=== PATIENT | female | born 1995 | race Caucasian/White ===

== ENCOUNTER 2017-07-19 05:34 | Emergency (ER) | payer SELFPAY ==
[~2017-07-19] VITALS: Ht 157.5 cm; Wt 93.2 kg
[2017-07-19 05:45] VITALS: BP 118/66; PULSE 117; RESP 18; TEMP 100.8; O2SAT 94
[2017-07-19] MEDS ORDERED: ACETAMINOPHEN 325 MG TAB PO ONE (06:30)
[2017-07-19] MEDS ORDERED: SODIUM CHLOR 0.9% 1000 ML INJ 1,000 ML IV ONE (06:30)
--- NOTE | 2017-07-19 06:55 | PD ---
HPI . Palpitations Chief Complaint: Cardiac Complaint Time Seen by Provider: 06:10 Travel History International Travel<30 days: No Contact w/Intl Traveler<30days: No Traveled to known affect area: No History of Present Illness HPI Patient presents with a chief complaint of rapid heart rate. Onset was at 5 AM. It lasted maybe 10 minutes. She states that she called the rescue squad and that the medics got there and was able to "talk her down." In addition, the patient is complaining with a sore throat and fever. She has had the symptoms for the last couple of days. She states that she got up to go the bathroom tonight and felt her heart beating fast. Symptoms were moderate but short-lived. She states that the symptoms were exacerbated by a "panic attack" and that her symptoms improved when the medic was able to "talk her down." PFSH Past Medical History Asthma: Yes Tetanus Vaccination: < 5 Years Influenza Vaccination: No ?: Not LMP: CURRENTLY : 2 Para: 2 Tubal Ligation: Yes Past Surgical History Section: Yes (X 2) Oral Surgery: Yes Social History Alcohol Use: Yes (RARELY ) Tobacco Use: Yes Substance Use: No Allergies-Medications (Allergen,Severity, Reaction): Coded Allergies: Penicillins (Verified Allergy, Severe, 07/19/17) HIVES levofloxacin (Verified Allergy, Severe, 07/19/17) HIVES Reported Meds & Prescriptions Reported Meds & Active Scripts Active No Active Prescriptions or Reported Medications Review of Systems Except as stated in HPI: all other systems reviewed are Neg General / Constitutional: Positive: Fever, Chills HENT: Positive: Sore Throat Cardiovascular: Positive: Palpitations Physical Exam Narrative GENERAL: Awake and alert and in no acute distress. SKIN: warm/dry. HEAD: Normocephalic. Atraumatic. EYES: Pupils equal and round. No scleral icterus. No injection or drainage. ENT: She does have erythema of her oropharynx with tonsillar enlargement and an exudate. NECK: Trachea midline. Full range of motion without pain.. No palpable cervical lymphadenopathy. CARDIOVASCULAR: Heart rate is about 110. It is sinus. RESPIRATORY: No accessory muscle use. Clear to auscultation. Breath sounds equal bilaterally. MUSCULOSKELETAL: No obvious deformities. NEUROLOGICAL: Awake and alert. No obvious cranial nerve deficits. Motor grossly within normal limits. Normal speech. PSYCHIATRIC: Appropriate mood and affect; insight and judgment normal. Data Data Last Documented VS Vital Signs Date Time Temp Pulse Resp B/P (MAP) Pulse Ox O2 Delivery O2 Flow Rate FiO2 07/19/17 05:45 100.8 117 18 118/66 (83) 94 Orders Orders Sodium Chlor 0.9% 1000 Ml Inj (Ns 1000 M (07/19/17 06:30) Acetaminophen (Tylenol) (07/19/17 06:30) Basic Metabolic Panel (Bmp) (07/19/17 06:18) Complete Blood Count With Diff (07/19/17 06:18) Group A Rapid Strep Screen (07/19/17 06:18) MDM Medical Decision Making Medical Screen Exam Complete: Yes Emergency Medical Condition: Yes Differential Diagnosis Differential diagnosis of tachycardia includes but is not limited to PSVT, atrial fibrillation with a rapid ventricular response, sinus tachycardia (due to hypovolemia, anemia, thyrotoxicosis, PE) Differential diagnosis of sore throat includes but is not limited to viral illness, strep throat, mononucleosis, retropharyngeal abscess, peritonsillar abscess Narrative Course This patient presents stating that she had a rapid heartbeat prior to arrival. She states that the medics were able to improve her heart rate by "talking her down." Her heart rate was reportedly 170. Unfortunately, we do not have a rhythm strip from [facility]. The patient does have a mild sinus tachycardia. She is also febrile. She has a sore throat. I am treating her with Tylenol and fluids. A CBC, BMP and rapid strep are pending. Her care will be turned over to the oncoming provider pending laboratory evaluation. Diagnosis Primary Impression: Tachycardia Additional Impression: Pharyngitis Qualified Codes: J02.9 - Acute pharyngitis, unspecified Scripts No Active Prescriptions or Reported Meds Condition: Marcella Villar MD Jul 19, 2017 06:55
[2017-07-19 07:17] LABS: AUTOMATED NEUTROPHIL # 10.9 TH/MM3 (1.8-7.7); BASOPHIL # 0.1 TH/MM3 (0-0.2); BASOPHIL % 0.6 % (0.0-2.0); EOSINOPHIL # 0.1 TH/MM3 (0-0.4); EOSINOPHIL % 0.7 % (0.0-4.0); HEMATOCRIT 35.9 % (35.0-46.0); HEMOGLOBIN 11.6 GM/DL (11.6-15.3); LYMPH % 7.8 % (9.0-44.0); MEAN CELL VOLUME 79.9 FL (80.0-100.0); MEAN CORPUSCULAR HEMOGLOBIN 25.9 PG (27.0-34.0); MEAN CORPUSCULAR HGB CONC 32.4 % (32.0-36.0); MEAN PLATELET VOLUME 9.1 FL (7.0-11.0); MONOCYTE # 0.8 TH/MM3 (0-0.9); NEUT % 84.9 % (16.0-70.0); PLATELET COUNT 161 TH/MM3 (150-450); RED BLOOD COUNT 4.49 MIL/MM3 (4.00-5.30); RED CELL DISTRIBUTION WIDTH 16.2 % (11.6-17.2); WHITE BLOOD COUNT 12.8 TH/MM3 (4.0-11.0)
[2017-07-19 07:34] VITALS: BP 113/62; PULSE 102; RESP 18; O2SAT 97
[2017-07-19 07:41] LABS: BICARBONATE 22.3 MEQ/L (21.0-32.0); CREATININE 0.58 MG/DL (0.50-1.00)
--- NOTE | 2017-07-19 08:09 | RADRPT ---
EXAM DATE/TIME: 07/19/2017 07:40 [facility] COMPARISON: No previous studies available for comparison. INDICATIONS : Fever. MEDICAL HISTORY : None. SURGICAL HISTORY : None. ENCOUNTER: Initial ACUITY: 1 day PAIN SCORE: 0/10 LOCATION: Bilateral chest FINDINGS: A single view of the chest demonstrates the lungs to be symmetrically aerated without evidence of mas s, infiltrate or effusion. The cardiomediastinal contours are unremarkable. Osseous structures are intact. CONCLUSION: No acute disease. Castillo Luna MD FACR on July 19, 2017 at 8:07 Board Certified Radiologist. This report was verified electronically.
[2017-07-19] MEDS ORDERED: ZITHTAB PO (08:28)
--- NOTE | 2017-07-19 08:28 | PD ---
Physical Exam Narrative Patient signed out to me by Dr. Vargas. Please see her documentation for complete details. Patient is a 21 year old female who comes in complaining of sore throat. She says she woke up this morning and felt her heart racing. She says she then had a panic attack, which made it worse. She is currently feeling better. Exam shows tonsils with large amount of exudates present and anterior cervical lymph nodes enlarged. Data Data Last Documented VS Vital Signs Date Time Temp Pulse Resp B/P (MAP) Pulse Ox O2 Delivery O2 Flow Rate FiO2 07/19/17 07:34 102 18 113/62 (79) 97 Room Air 07/19/17 05:45 100.8 Orders Orders Sodium Chlor 0.9% 1000 Ml Inj (Ns 1000 M (07/19/17 06:30) Acetaminophen (Tylenol) (07/19/17 06:30) Basic Metabolic Panel (Bmp) (07/19/17 06:18) Complete Blood Count With Diff (07/19/17 06:18) Group A Rapid Strep Screen (07/19/17 06:18) Chest, Single Ap (07/19/17 ) Strep Culture (Group A) (07/19/17 06:45) Labs Laboratory Tests Test 07/19/17 06:45 White Blood Count 12.8 TH/MM3 Red Blood Count 4.49 MIL/MM3 Hemoglobin 11.6 GM/DL Hematocrit 35.9 % Mean Corpuscular Volume 79.9 FL Mean Corpuscular Hemoglobin 25.9 PG Mean Corpuscular Hemoglobin Concent 32.4 % Red Cell Distribution Width 16.2 % Platelet Count 161 TH/MM3 Mean Platelet Volume 9.1 FL Neutrophils (%) (Auto) 84.9 % Lymphocytes (%) (Auto) 7.8 % Monocytes (%) (Auto) 6.0 % Eosinophils (%) (Auto) 0.7 % Basophils (%) (Auto) 0.6 % Neutrophils # (Auto) 10.9 TH/MM3 Lymphocytes # (Auto) 1.0 TH/MM3 Monocytes # (Auto) 0.8 TH/MM3 Eosinophils # (Auto) 0.1 TH/MM3 Basophils # (Auto) 0.1 TH/MM3 CBC Comment DIFF FINAL Differential Comment Blood Urea Nitrogen 6 MG/DL Creatinine 0.58 MG/DL Random Glucose 107 MG/DL Calcium Level 8.0 MG/DL Sodium Level 142 MEQ/L Potassium Level 3.6 MEQ/L Chloride Level 113 MEQ/L Carbon Dioxide Level 22.3 MEQ/L Anion Gap 7 MEQ/L Estimat Glomerular Filtration Rate 129 ML/MIN MDM Supervised Visit with ANNIE: No Narrative Course Labs show slight elevation in WBC count, no other abnormalities. Patient will be discharged with prescription for Azithromycin. Advised to drink plenty of fluids. Advised to take Tylenol or Ibuprofen as needed for pain. Advised to return to the ED as needed for any worsening symptoms. Diagnosis Primary Impression: Tachycardia Additional Impression: Pharyngitis Qualified Codes: J02.9 - Acute pharyngitis, unspecified Patient Instructions: General Instructions, Pharyngitis (ED) Additional Instruction: Take all of the antibiotic. Drink plenty of fluids. Take Tylenol or Ibuprofen for pain or fever. Return to the ED as needed for any worsening symptoms. Scripts Azithromycin (Zithromax Z-Neil) 250 Mg Dspk 250 MG PO DIRECTED for Infection, #1 DSPK 0 Refills 500 MG (2 tabs) day 1, then 1 tab days 2-5. Prov: Liz Reza MD 07/19/17 Disposition: DISCHARGE HOME Condition: Stable Liz Reza MD Jul 19, 2017 08:28
== END 2017-07-19 08:49 | disposition home or self-care (01) ==
LOC: NEPE 05:34
DX: R00.0 Tachycardia, unspecified (principal); J02.9 Acute pharyngitis, unspecified; J45.909 Unspecified asthma, uncomplicated; Z72.0 Tobacco use; Z88.0 Allergy status to penicillin; Z88.8 Allergy status to other drugs, medicaments and biological substances
CPT/HCPCS: 71045; 80048; 85025; 87081; 87880; 99284; J7030